=== PATIENT | female | born 1980 ===

== ENCOUNTER 2017-08-18 18:36 | Emergency (ER) | payer MEDICAID, OTHER ==
[2017-08-18 18:36] VITALS: BMI 34.6
[2017-08-18 19:46] VITALS: O2SAT 98
--- NOTE | 2017-08-18 20:32 | ED PDOC ---
Arrival/HPI - General Chief Complaint: Back Pain Time Seen by Provider: 08/18/17 19:16 Historian: Patient - History of Present Illness Narrative History of Present Illness (Text): 08/18/17 20:23 Pt is a 37 yr old female with a PMH of LBP, presents to the ED with right low back and buttock pain for the past 3 days with no radiation. Pt reports having a similar event over one year ago that was treated with cyclobenzaprine, tramadol, gabapentin and PT. Patient was told to have a piriformis trigger point injection but pt declined and symptoms resolved. Pt is here now because she wants to 'nip' the pain before it worsens. Denies cp, sob, fever, MEJIA, n/v/d , LE weakness, saddle paraesthesia, change in bowel or bladder. Time/Duration: < week Symptom Onset: Sudden Symptom Course: Unchanged Quality: Aching Severity Level: 5, 6 Activities at Onset: Rest, Light Context: Sitting, Standing, Walking Past Medical History - Provider Review Nursing Documentation Reviewed: Yes - Travel History Have you recently traveled outside [place] w/in the past 3 mons?: No - Cardiac Hx Cardiac Disorders: Yes Hx Hypertension: Yes (preeclampsia) - Pulmonary Hx Respiratory Disorders: No - Neurological Hx Neurological Disorder: No - HEENT Hx HEENT Disorder: No - Renal Hx Renal Disorder: No - Endocrine/Metabolic Hx Endocrine Disorders: No - Hematological/Oncological Hx Blood Disorders: No - Integumentary Hx Dermatological Disorder: No - Musculoskeletal/Rheumatological Hx Musculoskeletal Disorders: No - Gastrointestinal Hx Gastrointestinal Disorders: No - Genitourinary/Gynecological Hx Genitourinary Disorders: No - Psychiatric Hx Psychophysiologic Disorder: No Hx Substance Use: No - Surgical History Hx Section: Yes Hx Tubal Ligation: Yes Family/Social History - Physician Review Nursing Documentation Reviewed: Yes Family/Social History: No Known Family HX Smoking Status: Never Smoked Hx Alcohol Use: No Hx Substance Use: No Allergies/Home Meds Allergies/Adverse Reactions: Allergies No Known Allergies Allergy (Verified 08/18/17 19:36) Review of Systems - Review of Systems Constitutional: Normal Eyes: Normal ENT: Normal Respiratory: Normal Cardiovascular: Normal Gastrointestinal: Normal Genitourinary Female: Normal Musculoskeletal: Back Pain (right low back and buttock) Skin: Normal Neurological: Normal Endocrine: Normal Hemo/Lymphatic: Normal Psychiatric: Normal Physical Exam Vital Signs Reviewed: Yes Vital Signs Temp Pulse Resp BP Pulse Ox 08/18/17 21:00 98.1 F 82 16 127/82 08/18/17 19:45 75 17 133/80 98 Temperature: Afebrile Blood Pressure: Normal Pulse: Regular Respiratory Rate: Normal Appearance: Positive for: Well-Appearing, Non-Toxic, Comfortable Pain Distress: Mild Mental Status: Positive for: Alert and Oriented X 3 - Systems Exam Head: Present: Atraumatic, Normocephalic Pupils: Present: PERRL Extroacular Muscles: Present: EOMI Conjunctiva: Present: Normal Mouth: Present: Moist Mucous Membranes Neck: Present: Normal Range of Motion Respiratory/Chest: Present: Clear to Auscultation, Good Air Exchange. No: Respiratory Distress, Accessory Muscle Use Cardiovascular: Present: Regular Rate and Rhythm, Normal S1, S2. No: Murmurs Abdomen: No: Tenderness, Distention, Peritoneal Signs Back: Present: Normal Inspection Upper Extremity: Present: Normal Inspection. No: Cyanosis, Edema Lower Extremity: Present: Normal Inspection, NORMAL PULSES, Normal ROM, Other ( right SIJ pain and point tender over the piriformis m). No: Edema Neurological: Present: GCS=15, CN II-XII Intact, Speech Normal Skin: Present: Warm, Dry, Normal Color. No: Rashes Psychiatric: Present: Alert, Oriented x 3, Normal Insight, Normal Concentration Medical Decision Making ED Course and Treatment: 08/18/17 20:32 Pt is a 37 yr old female with a PMH of LBP, presents to the ED with right low back and buttock pain for the past 3 days with no radiation. On exam, Positive SLR b/l, motor function 5/5 Working Dx: piriformis syndrome, sciatica, sacroiliitis, cystitis Plan UA, Toradol 30 mg IM assess and dispo Progress Note Negative UA, good effects with toradol Advised pt to follow up with pain management in [place]; referral given Pt ambulating well on discharge - Lab Interpretations Lab Results: Lab Results 08/18/17 20:20: Urine Color Yellow, Urine Appearance Sl cloudy, Urine pH 6.5, Ur Specific Tolley 1.020, Urine Protein Negative, Urine Glucose (UA) Negative, Urine Ketones Negative, Urine Blood Small H, Urine Nitrate Negative, Urine Bilirubin Negative, Urine Urobilinogen 0.2, Ur Leukocyte Esterase Negative, Urine RBC 1 - 3, Urine WBC 0 - 2, Ur Epithelial Cells 0 - 2, Urine Bacteria Rare I have reviewed the lab results: Yes - Medication Orders Current Medication Orders: Discontinued Medications Ketorolac Tromethamine (Toradol) 30 mg IM STAT STA Stop: 08/18/17 19:44 Last Admin: 08/18/17 20:21 Dose: 30 mg MAR Pain Assessment Document 08/18/17 20:21 MS (Rec: 08/18/17 20:22 [place] [facility] [place] [id number] Pain Reassessment Is this a pain reassessment? No Sleep Is patient sleeping during reassessment? No Presence of Pain Presence of Pain Yes Pain Scale Used Pain Scale Used Numeric Location Left, Right or Bilateral Left Upper or Lower Lower Pain Location Body Site Back Description Description Intermittent Intensity of Pain at present 7 IM Administration Charges Document 08/18/17 20:21 MS (Rec: 08/18/17 20:22 MS [facility] [id number]) Injection Site MAR Injection Site Right Vastus Lateralis Charges for Administration # of IM Administrations 1 Disposition/Present on Arrival - Present on Arrival Any Indicators Present on Arrival: Yes History of DVT/PE: No History of Uncontrolled Diabetes: No Urinary Catheter: No History of Decub. Ulcer: No History Surgical Site Infection Following: None - Disposition Have Diagnosis and Disposition been Completed?: Yes Diagnosis: Piriformis syndrome, Right low back pain Disposition: HOME/ ROUTINE Disposition Time: 20:49 Patient Plan: Discharge Condition: GOOD Discharge Instructions (ExitCare): Sciatica (DC) Additional Instructions: Please follow up with Dr. Harrington in the next 24 hours. We have suggested a embossed or impressed lettering painter that may be able to offer you a variety of options to manage your pain All the bestMAIKEL Prescriptions: Ibuprofen [Motrin Tab] 600 mg PO Q6 PRN 5 Days #20 tab PRN Reason: pain/fever Referrals: Hilda Harrington MD [Primary Care Provider] - Follow up with primary Augusto Pierson MD [Staff Provider] - Follow up with primary Forms: WORK NOTE, [facility] (Danish)
[2017-08-18 20:36] LABS: PH,URINE 6.5 (4.7-8.0); URINE BILIRUBIN NEGATIVE (NEGATIVE); URINE BLOOD SMALL (NEGATIVE); URINE GLUCOSE (UA) NEGATIVE (NEGATIVE); URINE LEUKOCYTE ESTERASE NEGATIVE Leu/uL (NEGATIVE); URINE PROTEIN NEGATIVE mg/dL (<30 mg/dL); URINE UROBILINOGEN 0.2 E.U./dL (<1 E.U./dL)
[2017-08-18 20:37] LABS: URINE APPEARANCE SL CLOUDY (CLEAR); URINE COLOR YELLOW (YELLOW)
[2017-08-18 20:49] LABS: URINE BACTERIA RARE (NEG); URINE EPITHELIAL CELLS 0 - 2 /hpf (0-5); URINE WBC 0 - 2 /hpf (0-6)
[2017-08-19 00:31] VITALS: BP 127/82; PULSE 82; RESP 16; TEMP 98.1
== END 2017-08-19 00:30 | disposition home or self-care (01) ==
LOC: ED 18:36
DX: M54.5 Low back pain (principal); G57.00 Lesion of sciatic nerve, unspecified lower limb; I10 Essential (primary) hypertension
CPT/HCPCS: 81001; 96372; 99281; J1885

== ENCOUNTER 2017-12-16 15:00 | Emergency (ER) | payer MEDICAID ==
[2017-12-16 15:14] VITALS: BMI 35.0
[2017-12-16 15:15] VITALS: RESP 18
[2017-12-16] MEDS ORDERED: Metoprolol 1 mg/ml Inj IVP STA (15:30)
--- NOTE | 2017-12-16 16:00 | ED PDOC ---
Arrival/HPI - General Chief Complaint: Headache Time Seen by Provider: 12/16/17 15:26 Historian: Patient - History of Present Illness Narrative History of Present Illness (Text): 12/16/17 15:52 Ms. Pisano is a 37 year old female with PMH of HTN (diagnosed after having a child 3 years ago) presents to the ED today with a severe headache that started at 12:30 pm today while she was at work. She was advised to leave work and see her doctor where it was discovered that she had a blood pressure of 160/102. Patient was told to go to the ED for further treatment. Patient also notes that she has been dealing with migraine headaches everyday for the past three weeks. She states she has been taking Ibuprofen to help alleviate them. Patient admits to headache, blurry vision, nausea, and abdominal pain associated with the MEJIA' s. Patient denies chills, fevers, vomiting, numbness/tingling in her extremities , and any other aura type symptoms. Time/Duration: 1-3 hours Symptom Onset: Sudden Symptom Course: Unchanged, Worsening Past Medical History - Provider Review Nursing Documentation Reviewed: Yes - Infectious Disease Hx of Infectious Diseases: None - Cardiac Hx Cardiac Disorders: Yes Hx Hypertension: Yes (preeclampsia) - Pulmonary Hx Respiratory Disorders: No - Neurological Hx Migraine: Yes - HEENT Hx HEENT Disorder: No - Renal Hx Renal Disorder: No - Endocrine/Metabolic Hx Endocrine Disorders: No - Hematological/Oncological Hx Blood Disorders: No - Integumentary Hx Dermatological Disorder: No - Musculoskeletal/Rheumatological Hx Musculoskeletal Disorders: No - Gastrointestinal Hx Gastrointestinal Disorders: No - Genitourinary/Gynecological Hx Genitourinary Disorders: No - Psychiatric Hx Psychophysiologic Disorder: No Hx Substance Use: No - Surgical History Hx Section: Yes (x3) Hx Tubal Ligation: Yes - Anesthesia Hx Anesthesia: Yes Hx Anesthesia Reactions: No Hx Malignant Hyperthermia: No Family/Social History - Physician Review Nursing Documentation Reviewed: Yes Family/Social History: Hypertension, CAD/VA Narrative Family History (Free Text): 12/16/17 16:00 States her grandmother told her that her grandfather had HTN and from an VA Smoking Status: Never Smoked Hx Alcohol Use: Yes Frequency of alcohol use: Socially Hx Substance Use: No Allergies/Home Meds Allergies/Adverse Reactions: Allergies No Known Allergies Allergy (Verified 08/18/17 19:36) Home Medications: Home Meds Medication Instructions Recorded Confirmed amLODIPine [Norvasc] 1 tab PO DAILY 12/16/17 12/16/17 Review of Systems - Physician Review All systems were reviewed & negative as marked: Yes Physical Exam Vital Signs Reviewed: Yes Vital Signs Temp Pulse Resp BP Pulse Ox 12/16/17 17:03 97.9 F 69 18 137/83 95 12/16/17 15:45 75 173/74 H 12/16/17 15:42 97.8 F 75 18 173/74 H 99 12/16/17 15:15 97.8 F 77 18 146/94 H 99 Temperature: Afebrile Blood Pressure: Hypertensive Pulse: Regular Respiratory Rate: Normal Appearance: Positive for: Non-Toxic, Uncomfortable Pain Distress: Moderate Mental Status: Positive for: Alert and Oriented X 3 - Systems Exam Head: Present: Atraumatic, Normocephalic Pupils: Present: PERRL Extroacular Muscles: Present: EOMI Conjunctiva: Present: Normal Mouth: Present: Moist Mucous Membranes Neck: Present: Normal Range of Motion. No: Meningeal Signs, Lymphadenopathy Respiratory/Chest: Present: Clear to Auscultation. No: Wheezes, Rales, Rhonchi Cardiovascular: Present: Regular Rate and Rhythm, Normal S1, S2. No: Murmurs, Rub, Gallop Abdomen: Present: Normal Bowel Sounds. No: Tenderness, Rebound, Guarding Upper Extremity: Present: Normal Inspection. No: Cyanosis, Edema Lower Extremity: Present: Normal Inspection. No: Edema Neurological: Present: CN II-XII Intact, Speech Normal, Motor Func Grossly Intact, Normal Sensory Function Skin: Present: Warm, Dry Psychiatric: Present: Alert, Oriented x 3, Anxious Medical Decision Making ED Course and Treatment: 12/16/17 17:55 Patient was seen and examined initially and then re-evaluated at this time. CT scan of the head is without any acute findings. We informed the patient that her description and history of the headaches are most consistent with new onset migraine headaches. We will refer to Dr. Larry of neurology for further management. Patient agreed to follow up with Dr. Larry. Patient's BP improved with single dose of Lopressor 5mg. We encouraged her to continue to monitor her BP at home and to follow up with PCP for continued BP management. - Lab Interpretations Lab Results: 12/16/17 15:40 12/16/17 15:40 Lab Results 12/16/17 15:40: Sodium 140, Potassium 3.7, Chloride 103, Carbon Dioxide 27, Anion Gap 14, BUN 8, Creatinine 0.5 L, Est GFR ( Amer) > 60, Est GFR (Non -Af Amer) > 60, Random Glucose 99, Calcium 9.0, Phosphorus 3.0, Magnesium 1.9, Total Bilirubin 0.6, AST 23, ALT 28, Alkaline Phosphatase 87, Total Protein 7.9 , Albumin 4.3, Globulin 3.6, Albumin/Globulin Ratio 1.2 12/16/17 15:40: WBC 7.1, RBC 4.13, Hgb 12.1, Hct 36.1, MCV 87.4, MCH 29.3, MCHC 33.5, RDW 12.9, Plt Count 323, MPV 10.2, Gran % 64.4, Lymph % (Auto) 26.4, [place] % (Auto) 7.4 H, Eos % (Auto) 1.4 L, Baso % (Auto) 0.4, Gran # 4.59, Lymph # ( Auto) 1.9, [place] # (Auto) 0.5, Eos # (Auto) 0.1, Baso # (Auto) 0.03 12/16/17 15:40: TSH 3rd Generation 1.19 - RAD Interpretation Radiology Orders: 12/16/17 15:46 HEAD W/O CONTRAST [CT] Stat CHEST PORTABLE [RAD] Stat - Medication Orders Current Medication Orders: Discontinued Medications Acetaminophen (Tylenol 325mg Tab) 650 mg PO ONCE ONE Stop: 12/16/17 15:51 Last Admin: 12/16/17 16:06 Dose: 650 mg MAR Pain/Vitals Document 12/16/17 16:06 [place] (Rec: 12/16/17 16:06 [place] [facility] [id number]) Pain Reassessment Is This A Pain ReAssessment? No Sleep Is patient sleeping during reassessment? No Presence of Pain Presence of Pain Yes Pain Scale Used Pain Scale Used Numeric Location Pain Location Body Paradi Operator Intensity 10 Scale Used Numeric Pain Behavior Facial Grimacing Metoprolol Tartrate (Lopressor) 5 mg IVP STAT STA Stop: 12/16/17 15:31 Last Admin: 12/16/17 15:45 Dose: 5 mg IVP Administration Document 12/16/17 15:45 LA (Rec: 12/16/17 15:46 [place] [facility] [id number] Charges for Administration # of IVP Administrations 1 JUL Pulse and Blood Pressure Document 12/16/17 15:45 LA (Rec: 12/16/17 15:46 [place] [facility] [id number]) Pulse Pulse Rate (60-90) 75 Blood Pressure Blood Pressure (100/60-150/90) 173/74 Ondansetron HCl (Zofran Inj) 2 mg IVP ONCE ONE Stop: 12/16/17 15:51 Last Admin: 12/16/17 16:06 Dose: 2 mg IVP Administration Document 12/16/17 16:06 LA (Rec: 12/16/17 16:07 [place] [facility] [id number]) Charges for Administration # of IVP Administrations 1 Disposition/Present on Arrival - Present on Arrival Any Indicators Present on Arrival: No History of DVT/PE: No History of Uncontrolled Diabetes: No Urinary Catheter: No History of Decub. Ulcer: No History Surgical Site Infection Following: None - Disposition Have Diagnosis and Disposition been Completed?: Yes Diagnosis: Migraine Disposition: HOME/ ROUTINE Disposition Time: 17:52 Patient Plan: Discharge Condition: GOOD Additional Instructions: Please follow up with the neurologist Dr. Larry for treatment of your headaches , we have given the referral to his office Referrals: Gerard Larry MD [Staff Provider] - Follow up with primary Forms: [employer] (Polish), WORK NOTE
--- NOTE | 2017-12-16 16:15 | RAD ---
Date of service: 12/16/2017 HISTORY: hx HTN, new onset MEJIA COMPARISON: No prior. FINDINGS: LUNGS: No active pulmonary disease. PLEURA: No significant pleural effusion identified, no pneumothorax apparent. CARDIOVASCULAR: Normal. OSSEOUS STRUCTURES: No significant abnormalities. VISUALIZED UPPER ABDOMEN: Normal. OTHER FINDINGS: None. IMPRESSION: No active disease.
[2017-12-16 16:22] LABS: BASO # 0.03 K/mm3 (0.0-2.0); BASO % 0.4 % (0.0-3.0); EOS # 0.1 (0.0-0.7); EOS % 1.4 % (1.5-5.0); GRAN # 4.59 (1.4-6.5); GRAN % 64.4 % (50.0-68.0); HEMOGLOBIN 12.1 g/dL (12.0-16.0); LYMPH # 1.9 (1.2-3.4); LYMPH % 26.4 % (22.0-35.0); MEAN CELL VOLUME 87.4 fl (80.0-105.0); MEAN CORPUSCULAR HEMOGLOBIN 29.3 pg (25.0-35.0); MEAN CORPUSCULAR HGB CONC 33.5 g/dl (31.0-37.0); MEAN PLATELET VOLUME 10.2 fl (7.0-11.0); MONO # 0.5 (0.1-0.6); MONO % 7.4 % (1.0-6.0); RBC 4.13 10^6/uL (3.5-6.1); RED CELL DISTRIBUTION WIDTH 12.9 % (11.5-14.5); WHITE BLOOD COUNT 7.1 10^3/ul (4.5-11.0)
[2017-12-16 16:27] LABS: ALB/GLOB RATIO 1.2 (1.1-1.8); ALBUMIN 4.3 g/dL (3.0-4.8); ALT/SGPT 28 U/L (7-56); AST/SGOT 23 U/L (14-36); BLOOD UREA NITROGEN 8 mg/dL (7-21); GFR AFRICAN-AMERICAN > 60; GFR NON-AFRICAN AMERICAN > 60
[2017-12-16 17:05] VITALS: TEMP 97.9
--- NOTE | 2017-12-16 17:18 | CT ---
Date of service: 12/16/2017 PROCEDURE: CT HEAD WITHOUT CONTRAST. HISTORY: new onset worsening MEJIA, hx HTN COMPARISON: None available. TECHNIQUE: Axial computed tomography images were obtained through the head/brain without intravenous contrast. Radiation dose: Total exam DLP = 903.34 mGy-cm. This CT exam was performed using one or more of the following dose reduction techniques: Automated exposure control, adjustment of the mA and/or kV according to patient size, and/or use of iterative reconstruction technique. FINDINGS: HEMORRHAGE: No intracranial hemorrhage. BRAIN: No mass effect or edema. No atrophy or chronic microvascular ischemic changes. VENTRICLES: Unremarkable. No hydrocephalus. CALVARIUM: Unremarkable. PARANASAL SINUSES: Unremarkable as visualized. No significant inflammatory changes. MASTOID AIR CELLS: Unremarkable as visualized. No inflammatory changes. OTHER FINDINGS: None. IMPRESSION: No evidence of acute intracranial hemorrhage intracranial collection mass effect or midline shift.
[2017-12-16 18:12] VITALS: BP 129/73; PULSE 62; O2SAT 98
--- NOTE | 2017-12-17 06:57 | CARD ---
APPROVED REPORT Date of service: 12/16/2017 EKG Measurement Heart [id number] <Conclusion> Normal sinus rhythm Normal ECG
== END 2017-12-16 18:11 | disposition home or self-care (01) ==
LOC: ED 15:00
DX: G43.909 Migraine, unspecified, not intractable, without status migrainosus (principal); I10 Essential (primary) hypertension; Z82.49 Family history of ischemic heart disease and other diseases of the circulatory system
CPT/HCPCS: 70450; 71045; 80053; 83735; 84100; 84443; 85025; 93005; 96374; 96375; 99285; J2405